=== PATIENT | male | born 1950 | race Caucasian/White ===

== ENCOUNTER 2023-09-17 09:48 | Outpatient (REF) | payer MEDICARE, SELFPAY ==
[2023-09-17 11:27] LABS: Erythrocyte Sedimentation Rate 6 MM/HR (0-15)
[2023-09-17 13:54] LABS: Syphilis Screen Nonreactive (Nonreactive)
[2023-09-19 21:18] LABS: Lyme Abs Screen <0.90 index
[2023-09-22 04:14] LABS: Aldolase 4.8 U/L (<=8.1)
== END 2023-09-17 09:49 | disposition home or self-care (01) ==
LOC: HO.LAB 09:48
PROVIDERS: PCP Internal Medicine; Visit Provider Psychiatry & Neurology Neurology
DX: M79.7 Fibromyalgia (principal)
CPT/HCPCS: 36415; 82085; 82550; 85652; 86617; 86618; 86780